=== PATIENT | male | born 1970 | race Caucasian/White ===

== ENCOUNTER 2020-06-08 15:36 | Emergency (ER) | payer OTHER ==
[~2020-06-08] VITALS: Ht 175.3 cm; Wt 163.3 kg
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
--- NOTE | 2020-06-08 19:25 | Diagnostic Imaging Report ---
EXAMINATION: CHEST SINGLE (PORTABLE) INDICATION: ^Y ^dyspnea ^[id number] ^[id number] COMPARISON: None FINDINGS: TUBES and LINES: None. LUNGS: Normal lung volumes. Bilateral perihilar interstitial thickening. No focal consolidation. PLEURA: No pleural effusion or pneumothorax. HEART AND MEDIASTINUM: The cardiomediastinal silhouette is unremarkable. BONES AND SOFT TISSUES: No acute osseous lesion. Soft tissues are unremarkable. UPPER ABDOMEN: No free air under the diaphragm. IMPRESSION: Bilateral perihilar interstitial thickening, may represent mild interstitial edema or atypical/viral infection in appropriate clinical setting. Signed by: Dr. Joe Aguilera M.D. on 06/08/2020 7:22 PM
[2020-06-08 21:14] LABS: BASOPHILS % 0.4 % (0.0-1.0); EOSINOPHILS # (AUTO) 0.2 (0.0-0.4); EOSINOPHILS % 1.5 % (0.0-6.0); HEMATOCRIT 42.2 % (38.2-49.6); HEMOGLOBIN 14.7 g/dL (14.0-18.0); LYMPHOCYTES # (AUTO) 2.9 (1.0-3.2); LYMPHOCYTES % 28.1 % (18.0-39.1); MEAN CORPUSCULAR HEMOGLOBIN 30.4 pg (28-32); MEAN CORPUSCULAR HGB CONC 34.8 g/dL (31-35); MEAN CORPUSCULAR VOLUME 87.4 fL (81-99); MONOCYTES # (AUTO) 0.6 (0.2-0.8); MONOCYTES % 6.2 % (4.4-11.3); NEUTROPHILS # (AUTO) 6.6 (2.1-6.9); NEUTROPHILS % 63.4 % (38.7-80.0); PLATELET COUNT 370 x10e3/uL (140-360); RED BLOOD COUNT 4.83 x10e6/uL (4.3-5.7); RED CELL DISTRIBUTION WIDTH 12.2 % (11.7-14.4)
[2020-06-08 21:28] LABS: ALANINE AMINOTRANSFERASE 43 IU/L (0-55); ALBUMIN 3.9 g/dL (3.5-5.0); ALKALINE PHOSPHATASE 64 IU/L (40-150); ANION GAP 14.2 mmol/L (8-16); BLOOD UREA NITROGEN 17 mg/dL (7-26); BUN/CREATININE RATIO 18 (6-25); CALCIUM 9.6 mg/dL (8.4-10.2); CARBON DIOXIDE 28 mmol/L (22-29); CHLORIDE 102 mmol/L (98-107); CREATINE KINASE 55 IU/L (30-200); CREATININE, SERUM 0.94 mg/dL (0.72-1.25); EST GLOMERULAR FILTRATION RATE > 60 ML/MIN (60-); GLUCOSE 173 mg/dL (74-118); POTASSIUM 4.2 mmol/L (3.5-5.1); SODIUM 140 mmol/L (136-145)
--- NOTE | 2020-06-08 21:53 | Diagnostic Imaging Report ---
EXAM: CT Chest WITHOUT contrast INDICATION: sob COMPARISON: None TECHNIQUE: Chest was scanned utilizing a multidetector helical scanner from the lung apex through the level of the adrenal glands without administration of IV contrast. Absence of intravenous contrast decreases sensitivity for detection of lymphadenopathy and vascular pathology. Coronal and sagittal reformations were obtained. Routine protocol was performed. IV CONTRAST: None COMPLICATIONS: None FINDINGS: LINES/ TUBES: None. LUNGS AND AIRWAYS: Airways are normal. Normal variant azygos lobe. Mild scarring/atelectasis at the left lung base. No consolidation. No septal thickening. PLEURA: The pleural spaces are clear. HEART AND MEDIASTINUM: The thyroid gland is normal. No mediastinal, hilar or axillary lymphadenopathy. The heart is normal in size. There is no pericardial effusion. There are significant atherosclerotic calcifications in the aorta and coronary arteries. Prominent epicardial fat. UPPER ABDOMEN: Unremarkable. BONES: The visualized bony thorax is within normal limits. SOFT TISSUES: Gynecomastia. IMPRESSION: 1. No pneumonia or edema. 2. Severe coronary artery calcifications. Signed by: Luis E Hamm MD on 06/08/2020 9:50 PM
--- OUTSIDE RECORDS SUMMARY | 2020-06-14 18:09 | XMS REPORT | Clinical Summary ---
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 Last Filed Vital Signs Not on file Plan of Treatment Health Maintenance Due Date Last Done Comments IMM Influenza Seasonal 05/10/2020May to October (>/= 19 yrs) Results Not on fileafter 06/08/2019 Insurance Type Payer Benefit Subscriber ID Effective Phone Address Plan / Dates Group [facility] xxxxxxxxx 2016-P [phone] [address] [facility] [id number] [place] [address] PENDING LIEN PENDING xxxxxxxxx 2019- [phone] [address] [facility] (SELF-PAY) [place] [address] [phone] [id number] [facility] (Home) [place] [address]
--- OUTSIDE RECORDS SUMMARY | 2020-06-14 18:10 | XMS REPORT | Continuity of Care Document ---
Author Author Catherine Soysuper HIPOLITO Goldsmith III Organization [employer] Address Unknown Phone Unavailable Care Team Providers Care Financial Systems Administrator Name Role Phone Team-Match Information Market Track Unavailable Un available Problems Problem Status Onset Date Classification Date Reported Comments Source Weakness 03/11/2019 [facility] STROKE SIGNS Active 08/22/2018 [facility] Hidradenitis suppurativa 01/16/2018 01/19/2018 [facility] Cutaneous abscess, unspecified 01/16/2018 01/19/2018 [facility] BOILED UNDER LEFT ARM Active 01/16/2018 [facility] Laceration without foreign body of right index finger with damage to nail, initial encounter 03/23/2017 03/26/2017 [facility] LAC ON FINGER Active 03/23/2017 [facility] Constipation, unspecified 03/01/2017 03/04/2017 [facility] ABD PAIN Active 02/28/2017 [facility] Discharge Diagnosis: Elevated blood pressure 04/04/2015 04/07/2015 [facility] Discharge Diagnosis: Diabetes 04/04/2015 04/07/2015 [facility] Discharge Diagnosis: Furuncle of right axilla 04/04/2015 04/07/2015 [facility] ABSCESS UNDER ARM Active 04/04/2015 [facility] Anxiety (finding) Active Problem 03/11/2019 [facility] Diabetes mellitus (disorder) R esolved Problem 09/2018 [facility] History of - chronic lung disease (larisa xt-dependent category) Resolved Pr oblem 03/11/2019 [facility] Seizure (finding) Resolved Problem 03/11/2019 [facility] Other chest pain 03/11/2019 [facility] Type 2 diabetes mellitus without complications 03/11/2019 [facility] Essential (primary) hypertension 03/11/2019 [facility] Atherosclerotic heart disease of [place] coronary artery without angina pectoris 03/11/2019 [facility] Morbid (severe) obesity due to excess calories 03/11/2019 [facility] Personal history of transient ischemic a ttack (TIA), and cerebral infarction without residual deficits 03/11/2019 [facility] Bipolar disorder, unspecified 03/11/2019 [facility] Chronic obstructive pulmonary disease, unspecified 03/11/2019 [facility] Unspecified convulsions 03/11/2019 [facility] Nicotine dependence, chewing tobacco, uncomplicated 03/11/2019 [facility] Other intermediate (current) drug therapy 03/11/2019 [facility] long-term (current) use of aspirin 03/11/2019 [facility] long-term (current) use of insulin 03/11/2019 [facility] Hyperlipidemia, unspecified 03/11/2019 [facility] Anxiety disorder, unspecified 03/11/2019 [facility] TRANSIENT CEREBRAL ISCHEMIC ATTACK, UNSP Active [facility] Medications Medication Details Route Status Patient Instructions Ordering Provider Order Date Source Saline Flush 0.9% Notes: (Same as: BD Posiflush) Inactive 08/23/2018 [facility] atorvastatin Notes: (Same as: Lipitor) Inactive 08/23/2018 [facility] Aspirin 325 MG Enteric Coated Tablet Notes: (Do Not Crush) Do not crush or chew. Inactive 08/22/2018 [facility] normal saline 0.9% IV 1,000 mL 1,000 mL, Rate: 75 ml/hr, Infuse over: 13.3 hr, Route: IV, Dosing Weight 155.483 kg, Total Volume: 1,000, Start date: 08/22/18 14:38:00 MANUFACTURING TECHNOLOGY PROFESSOR, Duration: 1 doses or times, Stop date: 08/23/18 3:55:00 MANUFACTURING TECHNOLOGY PROFESSOR, 2.83, m2 Inactive 08/22/2018 [facility] Saline Flush 0.9% Notes: (Same as: BD Posiflush) Inactive 08/22/2018 [facility] Acetaminophen 300 MG / butalbital 50 MG / Caffeine 40 MG Oral Capsule [Fioricet] Notes: (cuvuudtduyqec-jtdlzwzvwe-rxkagzx e 325-50-40mg) Do not exceed 4 gm/day of acetaminophen. (Same as: Esgic, Fioricet) Inactive 08/22/2018 [facility] Benadryl 25 mg, 1 tab, Route: PO, Drug form: TAB, TID, Dosing Weight 155.483, kg, PRN Itching, Start date: 08/22/18 14:35:00 MANUFACTURING TECHNOLOGY PROFESSOR, Duration: 30 day, Stop date: 09/21/18 14:34:00 MANUFACTURING TECHNOLOGY PROFESSOR Inactive 08/22/2018 [facility] Acetaminophen 325 MG / Hydrocodone Mahsa trate 5 MG Oral Tablet [[place] 5/325] Notes: (Same as: [place] 325/5) Do not ex ceed 4gm/day of acetaminophen. Inactive 08/22/2018 [facility] Tums Notes: (Same As: Tums) Ca lcium Carbonate 500 mg = 200 mg elemental calcium Dose = mg calcium carbonate ( mg elemental calcium) Inactive 08/22/2018 [facility] Ativan Notes: (Same as: Ativan) Inactive 08/22/2018 [facility] Melatonin 3 MG Extended Release Tablet Notes: (Same as: Melatonin) Inactive 08/22/2018 [facility] Tylenol Notes: Do not exceed 4 gm/day. (Same as: Tylenol) Inactive 08/22/2018 [facility] Docusate Sodium 50 MG / sennosides, GROUP HOME 8.6 MG Oral Tablet Notes: (Same as Senokot-S) Equiv. to Lea-Colace. Inactive 08/22/2018 [facility] Zofran Notes: (Same as: Zofran ) MEDICATION WASTE Product Size: 4 mg Product Wasted: ___ mg Inactive 08/22/2018 [facility] Hydralazine Notes: (Same as: A presoline) May interfere w/enteral feedings Take With Food. Inactive 08/22/2018 [facility] Labetalol Notes: (Same as: Maria E goodwin Trandate) Push over 2 minutes Give bolus over 2-3 minutes. Inactive 08/22/2018 [facility] Meclizine Notes: (Same as: Ant ivert) Inactive 08/22/2018 [facility] Aspirin 325 MG Oral Tablet Not es: Take with food. Inactive 08/22/2018 [facility] Enoxaparin Notes: (Same as: Lo venox) Inactive 08/22/2018 [facility] Lipitor Notes: (Same as: Lipit or) Inactive 08/22/2018 [facility] Aspirin 81 MG Chewable Tablet Notes: Take with food. Inactive 08/22/2018 [facility] Ativan Notes: (Same as: Ativan) Inactive 08/22/2018 [facility] Saline Flush 0.9% Notes: (Same as: BD Posiflush) Inactive 08/22/2018 [facility] Motrin 600 mg oral tablet 600 mg = 1 tab, PO, Q8H, PRN Pain, take with food, # 30 tab, 0 Refill(s) Active 01/16/2018 [facility] Clindamycin 300 MG Oral Capsule [Cleocin] 300 mg = 1 cap, PO, Q6H, X 14 day, # 56 cap, 0 Refill(s) Active 01/16/2018 [facility] Acetaminophen 325 MG / Hydrocodone Mahsa trate 5 MG Oral Tablet [[place] 5/325] 1 tab, Route: PO, Drug Form: TAB, Dosing Weight 150.909, kg, ONCE, STAT, Start date: 03/23/17 19:08:00 CDT, Stop date: 03/23/17 19:08:00 CDT Inactive 03/24/2017 [facility] clindamycin 300 mg oral capsule 300 mg = 1 cap, PO, Q8H, X 10 day, # 30 cap, 0 Refill(s) Active 03/24/2017 [facility] lidocaine 1% injectable solution Notes: (Same as: Xylocaine) Inactive 03/23/2017 [facility] lidocaine 1% injectable solution Notes: Preservative free. (Same as: Xylocaine MPF) Inactive 03/23/2017 [facility] Ibuprofen 800 mg, Route: PO, D rug form: TAB, ONCE, Dosing Weight 150.909, kg, Priority: STAT, Start date: 03/23/17 16:26:00 CDT, Stop date: 03/23/17 16:26:00 CDT Inactive 03/23/2017 [facility] Lactulose 667 MG/ML Oral Solution 10 gm = 15 mL, PO, BID, PRN constipation, X 16 day, # 240 mL, 0 Refill(s) Active 03/01/2017 [facility] Ondansetron Notes: (Same as: Rafael bermudez) MEDICATION WASTE Product Size: 4 mg Product Wasted: ___ mg No Longer Active 03/01/2017 [facility] Morphine Notes: (Same as:MORPh ine Sulfate) No Longer Active 03/01/2017 [facility] Lipitor PO, Daily, 0 Refill(s) Active 03/01/2017 [facility] NS (Bolus) IV 1,000 mL, 1,000 ml/hr, Infuse Over: 1 hr, Route: IV, 1,000, Drug form: INJ, ONCE, Priority: STAT, Dosing Weight 163.352 kg, Start date: 02/28/17 23:44:00 CDT, Duration: 1 doses or times, Stop date: 0 02/28/17 23:44:00 CDT No Longer Active 03/01/2017 [facility] Insulin Glargine 100 UNT/ML Injectable S olution [Lantus] SUB-Q, 0 Refill(s) Active 03/01/2017 [facility] Cephalexin 500 MG Oral Capsule [Keflex] 500 mg = 1 cap, PO, QID, X 10 day, # 40 cap, 0 Refill(s) Active 04/05/2015 [facility] Sulfamethoxazole 800 MG / Trimethoprim 1 60 MG Oral Tablet [Bactrim] 1 tab, PO, BID, # 20 tab, 0 Refill(s) Active 04/05/2015 [facility] Acetaminophen 325 MG / Hydrocodone Mahsa trate 5 MG Oral Tablet [[place] 5/325] 1 tab, PO, Q6H, 0 Refill(s) Active 04/05/2015 [facility] Soma PO, QID, 0 Refill(s) Active 04/05/2015 [facility] Metformin PO, 0 Refill(s) Active 04/05/2015 [facility] Xanax PO, TID, 0 Refill(s) Active 04/05/2015 [facility] Allergies, Adverse Reactions, Alerts Substance Category Reaction Severity Reaction type Status Date Reported Comments Source penicillins Assertion swelling Drug allergy Active [facility] Immunizations No Data Provided for This Section Results Order Name Results Value Reference Range Date Interpretation Comments Source LIPIDS VLDL 49 08/22/2018 [facility] LIPIDS Chol 372 <=199 mg/dL 08/22/2018 [facility] LIPIDS Trig 246 <=149 mg/dL 08/22/2018 [facility] LIPIDS CHD Risk 10.33 4.00 - 7.30 08/22/2018 [facility] LIPIDS HDL 36 >=61 mg/dL 08/22/2018 [facility] LIPIDS LDL (Calculated) 287 <=99 mg/dL 08/22/2018 [facility] SPECIAL CHEMISTRY Hgb A1C 8.9 <=5.6 % 08/22/2018 [facility] CARDIAC ENZYMES Total CK 28 12 - 191 08/22/2018 [facility] CARDIAC ENZYMES Troponin-I <0.02 0.00 - 0.40 08/22/2018 [facility] ELECTROLYTES AGAP 11.3 10.0 - 20.0 08/22/2018 [facility] ELECTROLYTES eGFR 105 08/22/2018 Result Comment: The eGFR is calculated using the CKD-EPI formula. In most young, healthy individuals the eGFR will be >90 mL/min/1.73m2. The eGFR declines with age. An eGFR of 60-89 may be normal in some populations, particularly the elderly, for whom the CKD-EPI formula has not been extensively validated. Use of the eGFR is not recommended in the following populations:

Individuals with unstable creatinine concentrations, including patients and those with serious co-morbid conditions.

Patients with extremes in muscle mass or diet.

The data above are obtained from the National Kidney Disease Education Program (NKDEP) which additionally recommends that when the eGFR is used in patients with extremes of body mass index for purposes of drug dosing, the eGFR should be multiplied by the estimated BMI. [facility] ELECTROLYTES Sodium Lvl 134 135 - 145 08/22/2018 [facility] ELECTROLYTES Chloride Lvl 99 95 - 109 08/22/2018 [facility] ELECTROLYTES Potassium Lvl 4.3 3.5 - 5.1 08/22/2018 [facility] ELECTROLYTES Calcium Lvl 9.5 8.5 - 10.5 08/22/2018 [facility] ELECTROLYTES CO2 28 24 - 32 08/22/2018 [facility] ELECTROLYTES Creatinine Lvl 0.8 6 0.50 - 1.40 08/22/2018 [facility] ELECTROLYTES BUN 15 7 - 22 08/22/2018 [facility] ELECTROLYTES Glucose Lvl 316 70 - 99 08/22/2018 [facility] HEMATOLOGY Monocytes 6.5 2.0 - 12.0 08/22/2018 [facility] HEMATOLOGY Eosinophils 1.5 0.0 - 4.0 08/22/2018 [facility] HEMATOLOGY Segs 65.0 45.0 - 75.0 08/22/2018 [facility] HEMATOLOGY Lymphocytes 26.4 20.0 - 40.0 08/22/2018 [facility] HEMATOLOGY Basophils 0.6 0.0 - 1.0 08/22/2018 [facility] HEMATOLOGY Eosinophils # 0.1 0.0 - 0.5 08/22/2018 [facility] HEMATOLOGY Basophils # 0.1 0.0 - 0.2 08/22/2018 [facility] HEMATOLOGY Lymphocytes # 2.3 1.0 - 5.5 08/22/2018 [facility] HEMATOLOGY Monocytes # 0.6 0.0 - 0.8 08/22/2018 [facility] HEMATOLOGY Neutrophils # 5.5 1.5 - 8.1 08/22/2018 [facility] HEMATOLOGY MCV 89.4 80.0 - 94.0 08/22/2018 [facility] MCH 31.1 27.0 - 31.0 08/22/2018 [facility] HEMATOLOGY Hgb 15.4 14.0 - 18.0 08/22/2018 [facility] HEMATOLOGY Hct 44.3 42.0 - 54.0 08/22/2018 [facility] MPV 7.4 7.4 - 10.4 08/22/2018 [facility] Platelet 389 133 - 450 08/22/2018 [facility] MCHC 34.7 32.0 - 36.0 08/22/2018 [facility] HEMATOLOGY RDW 11.8 11.5 - 14.5 08/22/2018 [facility] HEMATOLOGY WBC 8.6 3.7 - 10.4 08/22/2018 [facility] RBC 4.95 4.70 - 6.10 08/22/2018 [facility] HEMATOLOGY INR 0.94 0.85 - 1.17 08/22/2018 [facility] PT 12.4 12.0 - 14.7 08/22/2018 [facility] PTT 33.6 22.9 - 35.8 08/22/2018 [facility] CHEM PANEL Globulin 3.6 2.7 - 4.2 03/01/2017 [facility] CHEM PANEL A/G Ratio 1.0 0.7 - 1.6 03/01/2017 [facility] CHEM PANEL AGAP 13.0 10.0 - 20.0 03/01/2017 [facility] CHEM PANEL B/C Ratio 11 6 - 25 03/01/2017 [facility] CHEM PANEL Calcium Lvl 8.9 8.5 - 10.5 03/01/2017 [facility] CHEM PANEL Chloride Lvl 102 95 - 109 03/01/2017 [facility] CHEM PANEL Sodium Lvl 139 135 - 145 03/01/2017 [facility] CHEM PANEL CO2 28 24 - 32 03/01/2017 [facility] CHEM PANEL eGFR 94 03/01/2017 Result Comment: The eGFR is calculated using the CKD-EPI formula. In most young, healthy individuals the eGFR will be >90 mL/min/1.73m2. The eGFR declines with age. An eGFR of 60-89 may be normal in some populations, particularly the elderly, for whom the CKD-EPI formula has not been extensively validated. Use of the eGFR is not recommended in the following populations:

Individuals with unstable creatinine concentrations, including patients and those with serious co-morbid conditions.

Patients with extremes in muscle mass or diet.

The data above are obtained from the National Kidney Disease Education Program (NKDEP) which additionally recommends that when the eGFR is used in patients with extremes of body mass index for purposes of drug dosing, the eGFR should be multiplied by the estimated BMI. [facility] CHEM PANEL Creatinine Lvl 0.97 0.50 - 1.40 03/01/2017 [facility] CHEM PANEL BUN 11 7 - 22 03/01/2017 [facility] CHEM PANEL Albumin Lvl 3.6 3.5 - 5.0 03/01/2017 [facility] CHEM PANEL Glucose Lvl 330 70 - 99 03/01/2017 [facility] CHEM PANEL Alk Phos 56 39 - 136 03/01/2017 [facility] CHEM PANEL ALT 49 0 - 65 03/01/2017 [facility] CHEM PANEL Potassium Lvl 4.0 3.5 - 5.1 03/01/2017 [facility] CHEM PANEL Total Protein 7.2 6.4 - 8.4 03/01/2017 [facility] CHEM PANEL AST 22 0 - 37 03/01/2017 [facility] CHEM PANEL Bili Total 0.4 0.2 - 1.3 03/01/2017 [facility] CHEM PANEL Lactic Acid Lvl 2.0 0.5 - 2.2 03/01/2017 [facility] CHEM PANEL Lipase Lvl 184 73 - 393 03/01/2017 [facility] HEMATOLOGY MPV 7.7 7.4 - 10.4 03/01/2017 [facility] MCHC 34.6 32.0 - 36.0 03/01/2017 [facility] HEMATOLOGY RDW 12.3 11.5 - 14.5 03/01/2017 [facility] HEMATOLOGY Platelet 320 133 - 450 03/01/2017 [facility] MCH 30.9 27.0 - 31.0 03/01/2017 [facility] HEMATOLOGY Hgb 13.7 14.0 - 18.0 03/01/2017 [facility] Hct 39.7 42.0 - 54.0 03/01/2017 [facility] MCV 89.3 80.0 - 94.0 03/01/2017 [facility] RBC 4.44 4.70 - 6.10 03/01/2017 [facility] WBC 7.5 3.7 - 10.4 03/01/2017 [facility] HEMATOLOGY Eosinophils # 0.2 0.0 - 0.5 03/01/2017 [facility] HEMATOLOGY Lymphocytes 34.5 20.0 - 40.0 03/01/2017 [facility] HEMATOLOGY Monocytes 7.1 2.0 - 12.0 03/01/2017 [facility] HEMATOLOGY Segs 55.7 45.0 - 75.0 03/01/2017 [facility] HEMATOLOGY Monocytes # 0.5 0.0 - 0.8 03/01/2017 [facility] HEMATOLOGY Segs-Bands # 4.2 1.5 - 8.1 03/01/2017 [facility] HEMATOLOGY Lymphocytes # 2.6 1.0 - 5.5 03/01/2017 [facility] HEMATOLOGY Eosinophils 2.1 0.0 - 4.0 03/01/2017 [facility] HEMATOLOGY Basophils 0.6 0.0 - 1.0 03/01/2017 [facility] URINE AND STOOL Micro? Performed (03/01/17 12:06 AM) 03/01/2017 [facility] URINE AND STOOL UA Sq Epi Rare /LPF Few /LPF 03/01/2017 [facility] URINE AND STOOL UA Bacteria None Seen (03/01/17 12:06 AM) None Seen 03/01/2017 [facility] URINE AND STOOL UA RBC 0-2 /HPF 0 - 2 03/01/2017 [facility] URINE AND STOOL UA WBC 0-2 /HPF None Seen /HPF 03/01/2017 [facility] URINE AND STOOL UA Nitrite Negative (03/01/17 12:06 AM) Negative 03/01/2017 [facility] URINE AND STOOL UA Urobilinogen 0.2 0.1 - 1.0 03/01/2017 [facility] URINE AND STOOL UA Leuk Est Negative (03/01/17 12:06 AM) Negative 03/01/2017 [facility] URINE AND STOOL UA Bili Negative *NA* (03/01/17 12:06 AM) Negative 03/01/2017 [facility] URINE AND STOOL UA Blood Negative (03/01/17 12:06 AM) Negative 03/01/2017 [facility] URINE AND STOOL UA Ketones Negative *NA* (03/01/17 12:06 AM) Negative 03/01/2017 [facility] URINE AND STOOL UA Glucose >=1000 mg/dL Negative mg/dL 03/01/2017 [facility] URINE AND STOOL UA Protein 30 mg/dL Negative mg/dL 03/01/2017 [facility] URINE AND STOOL UA Spec Grav 1.025 <=1.030 03/01/2017 [facility] URINE AND STOOL UA Turbidity Clear (03/01/17 12:06 AM) Clear 03/01/2017 [facility] URINE AND STOOL UA pH 6.0 5.0 - 8.0 03/01/2017 [facility] URINE AND STOOL UA Color Yellow *NA* (03/01/17 12:06 AM) Yellow 03/01/2017 [facility] Pathology Reports No Data Provided for This Section Diagnostic Reports Report Value Date Source Brain Stroke wo contrast CT [facility]: Brain Stroke wo contrast CT 08/22/2018 10:54 MANUFACTURING TECHNOLOGY PROFESSOR Ordering Physician: Migdalia Velasquez MD Patient Name: HIPOLITO JIANG MR: [id number] : 1970; Age: 47 years y/o Male Clinical Indication: - left sided weakness Comparison: None TECHNIQUE: Multiple contiguous transaxial noncontrast CT images were obtained through the head. Coronal and sagittal reformatted images were prepared. DOSE: CT imaging performed at this location utilizes radiation dose optimization techniques which include one or more of the followin) Automated exposure control; 2) Adjustment of the mA and/or kV according to patient size; 3) Use of iterative reconstruction techniques. Dose DLP: 1163 mGy-cm FINDINGS: BRAIN PARENCHYMA: The brain volume is appropriate for age. No evidence of acute intracranial hemorrhage, mass lesion, mass effect, midline shift, or extra-axial fluid collection. VENTRICLES: The lateral ventricles, third ventricle, fourth ventricle, and basilar cisterns are appropriate for degree of atrophy present. PARANASAL SINUSES: The visualized portions of the paranasal sinuses are clear. MASTOIDS: Clear. ORBITS: The visualized portions of the orbits are normal. SOFT TISSUES: No significant abnormality. SKULL: No acute fracture or suspicious osseous lesion. IMPRESSION: 1. No acute intracranial abnormality. Findings discussed with Dr. Velasquez 11:33 AM 08/22/2018 by telephone. SL: [id number] 08/22/2018 [facility] Brain/Neck CTA Clinical Indica tion: - left sided weakness. Comparison: CT brain study dated 08/22/2018. TECHNIQUE: Sequential trans-axial images of the head and neck were obtained with a multi-detector helical CT after iodinated contrast administration. Coronal and sagittal reconstructions and were obtained, along with 3D post-processing imaging for exam interpretation with MIP images. CONTRAST: 100 cc of IV Omnipaque contrast material was used for the exam. CT imaging performed at this location utilizes radiation dose optimization techniques which include one or more of the following: -Automated exposure control -Adjustment of the mA and/or kV accordin g to patient size -Use of iterative reconstruction [employer] ue CT Radiation Dose DLP 1530 mGy-cm FINDINGS: CTA NECK: VASCULAR EVALUATION: The aortic arch demonstrates normal three-vessel configuration. The origins of the great vessels and visualized upper thoracic aortic arch are unremarkable. Patchy eccentric atherosclerotic calcifications along the bilateral carotid bulbs minimally extending into the proximal internal carotid artery causing less than 30% stenosis of the proximal internal carotid arteries bilaterally as per the NASCET criteria. RIGHT The common carotid artery is widely patent. Mild tortuosity with medial retropharyngeal course of the proximal right cervical internal carotid artery. Mild patchy atherosclerotic calcifications along the distal right cervical internal carotid artery without significant stenosis. The right external carotid artery is unremarkable. LEFT The common carotid artery is widely patent. The internal carotid artery origin is widely patent. The cervical internal carotid artery is widely patent. The left external carotid artery is unremarkable. The right vertebral artery is hypoplastic throughout its course-anatomic variation. No dominant left vertebral artery. Bilateral cervical segments of the vertebral arteries are widely patent. The source images show no evidence of dissections. If there is further concern, recommend conventional angiography for complete assessment. Any reported ICA stenosis directly references the distal internal carotid diameter as the denominator for stenosis measurement. NON-VASCULAR STRUCTURES: Azygous right upper lobe. Multilevel degenerative disc and endplate changes changes in the cervical spine. Visualized lung apices are unremarkable. Mild circumferential thickening of the visualized esophageal wall, more in its posterior aspect. CTA HEAD: ANTERIOR CIRCULATION: Eccentric atherosclerotic plaque along the bilateral petrous segment of the internal carotid arteries with mild focal stenosis. Moderate patchy atherosclerotic calcific plaques along the cavernous and supraclinoid internal carotid arteries causing moderate to severe stenosis of the right and moderate left focal stenosis. The distal intracranial internal carotid arteries are patent. Hypoplastic right A1 segment-anatomic variation. Patent left A1 and bilateral A2 segments of the anterior cerebral arteries. The middle cerebral arteries and branches are unremarkable. The anterior communicating artery is unremarkable. POSTERIOR CIRCULATION: Moderate eccentric atherosclerotic calcifications along the left intradural V3 and proximal V4 segment with moderate focal stenosis. The distal left V4 segment is patent. Nonvisualization of the right V4 segment secondary to marked hypoplasia/chronic stenosis with patchy eccentric atherosclerotic calcifications along the proximal right V4 segment moderate to severe focal stenosis. Patent right V3 segment. Remainder of the vertebral basilar system is unremarkable. superior cerebellar and posterior cerebral arteries are unremarkable. The distal right vertebral artery continues as posterior inferior cerebellar artery. No CT evidence of arterial venous malformation. NON-CONTRAST BRAIN IMAGES: The noncontrast images of the head show no mass- effect or midline shift. There are no intra or extra-axial fluid collections, intraventricular or intraparenchymal hemorrhages. The ventricles and cisterns are normal. CONTRAST ENHANCED BRAIN IMAGES: The contrast-enhanced images of the head show no abnormally enhancing lesions. If there is further concern, recommend conventional angiography for complete assessment. IMPRESSION: 1. Patchy eccentric atherosclerotic calc ifications along the bilateral carotid bulbs mildly extending into the proximal internal carotid artery causing less than 30% stenosis of the proximal internal carotid arteries bilaterally as per the NASCET criteria. 2. Atherosclerotic disease with patchy c alcifications along the bilateral petrous internal carotid arteries with mild focal stenosis. Moderate patchy atherosclerotic calcific plaques along the cavernous and supraclinoid internal carotid arteries causing focal moderate to severe stenosis of the right and moderate left focal stenosis. 3. Moderate eccentric atherosclerotic ca lcifications along the left intradural V3 and proximal V4 segment with moderate focal stenosis. The distal left V4 segment is patent. Nonvisualization of the right V4 segment with patchy eccentric atherosclerotic calcifications along the proximal right V4 segment causing moderate to severe focal stenosis likely secondary to marked hypoplasia/chronic stenosis. SL: [id number] 08/22/2018 [facility] Chest 1view DX Clinical Indica tion: - left sided weakness; Comparison: None FINDINGS: AP chest radiographs shows normal lung volumes without interstitial or airspace opacities, pleural effusions or pneumothorax. The heart size and pulmonary vasculature are normal. The trachea is midline. There are no clinically significant osseous abnormalities noted. IMPRESSION: No chest radiographic evidence of acute cardiopulmonary disease. SL: [id number] 08/22/2018 [facility] Finger 3 views DX Clinical Ind ication: Right index finger laceration; Comparison: None FINDINGS: The 4 views of the right index finger show normal alignment without fractures or dislocations. The interphalangeal joints are unremarkable. The metacarpophalangeal joint is unremarkable. There is no soft tissue swelling or radiopaque foreign bodies. If there is further concern, recommend follow-up radiographs or bone scan for complete assessment. IMPRESSION: No fractures or dislocation of the right index finger. 03/23/2017 [facility] ED Abdomen/Pelvis IV contrast only CT Clinical Indication: Abdominal pain, acute - RLQ TTP Comparison: None TECHNIQUE: Sequential trans-axial images were obtained with a multi-detector helical CT after administration of iodinated contrast. Coronal and sagittal reconstructions were obtained. 100 mL of omnipaque contrast material was used for the exam. omnipaque oral contrast material was used for the exam. CT Radiation Dose DLP 1487 mGy-cm FINDINGS: CT ABDOMEN WITH CONTRAST: VISUALIZED LUNG BASES: Unremarkable. The heart is normal in size. ABDOMINAL SOLID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
--- OUTSIDE RECORDS SUMMARY | 2020-06-14 18:10 | XMS REPORT | Continuity of Care Document ---
Author Author [facility] t Organization [facility] Address [address] [place] [address] Phone Unavailable Care Team Providers Care Mathematical Scientist Name Role Phone Sandoval MARQUEZ Attphys Unavailable Denys Rogers Attphys Mauro Coronel III Attphys Avery Bustillo Attphys Owen Meehan Attphys Denys Rogers Admphys Payers Payer Name Policy Type Policy Number Effective Date Expiration Date S ource Problems Condition Name Condition Details Condition Category Status Onset Date Resolution Date Last Treatment Date Treating Clinician Comments Source STROKE SIGNS STRO KE SIGNS Active 08/22/2018 [facility] Diagnosis Active 2018-08-22 07:00:00 2018-08-23 14:20:00 Catherine Rao BOILED UNDER LEFT ARM BOIL ED UNDER LEFT ARM Active 01/16/2018 [facility] Diagnosis Active 2018-01-16 00:00:00 2018-01-16 15:46: 00 Catherine Rao LAC ON FINGER LAC ON FINGER Active 03/23/2017 [facility] Diagnosis Active 2017-03-23 00:00:00 2017-03-23 17:27:00 Catherine Rao ABD PAIN ABD PAIN Active 02/28/2017 [facility] Diagnosis Active 2017-02-28 00:00:00 2017-03-01 02:45:00 Catherine Rao ABSCESS UNDER ARM ABSC ESS UNDER ARM Active 04/04/2015 [facility] Diagnosis Active 2015-04-04 01:00:00 2015-04-06 15:43:00 [facility] Other chest pain Othe r chest pain 03/11/2019 [facility] 2019-03-11 12:33:20 Nm papo Jalen Type 2 diabetes mellitus without complications Type 2 diabetes mellitus without complications 03/11/2019 [facility] 2019-03-11 12:33:20 [facility] Essential (primary) hypertension Essential (primary) hypertension 03/11/2019 [facility] 2019-03-11 12:33:20 [facility] 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 03/11/2019 [facility] 2019-03-11 12:33:20 [facility] Morbid (severe) obesity due to excess calories Morbid (severe) obesity due to excess calories 03/11/2019 [facility] 2019-03-11 12:33:20 [facility] Personal history of transient ischemic a ttack (TIA), and cerebral infarction without residual deficits Personal history of transient ischemic attack (TIA), and cerebral infarction without residual deficits 03/11/2019 [facility] 2019-03-11 12:33:20 [facility] Bipolar disorder, unspecified Bipolar disorder, unspecified 03/11/2019 [facility] 2019-03-11 1 2:33:20 [facility] Chronic obstructive pulmonary disease, unspecified Chronic obstructive pulmonary disease, unspecified 03/11/2019 [facility] 2019-03-11 12:33:20 [facility] Unspecified convulsions Unsp ecified convulsions 03/11/2019 [facility] 2019-03-11 12:33:20 [facility] Nicotine dependence, chewing tobacco, uncomplicated Nicotine dependence, chewing tobacco, uncomplicated 03/11/2019 [facility] 2019-03-11 12:33:20 [facility] Other half-way (current) drug therapy 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 03/11/2019 [facility] 2019-03-11 12:33:20 [facility] turnaround engineer (current) use of aspirin half-way (current) use of aspirin 03/11/2019 [facility] 2 12:33:20 [facility] turnaround engineer (current) use of insulin half-way (current) use of insulin 03/11/2019 [facility] 2 12:33:20 [facility] Jalen Hyperlipidemia, unspecified Hy perlipidemia, unspecified 03/11/2019 [facility] 2019-03-11 12:33:2 0 Catherine Rao Anxiety disorder, unspecified Anxiety disorder, unspecified 03/11/2019 [facility] Problem 2019-03-11 1 2:33:20 Catherine Rao Diabetes mellitus (disorder) D iabetes mellitus (disorder) Resolved Problem 03/11/2019 [facility] Problem Resolved 2019-03-11 12:33:20 Catherine Rao History of - chronic lung disease (context-dependent c ategory) History of - chronic lung disease (context-dependent category) Resolved Problem 03/11/2019 [facility] Problem Resolved 2019-03-11 12:33: 20 Catherine Rao Seizure (finding) Seiz ure (finding) Resolved Problem 03/11/2019 [facility] Problem Resolved 2019-03-11 12:33:20 Catherine Rao Anxiety (finding) Anxi ety (finding) Active Problem 03/11/2019 [facility] Problem Active 2019-03-11 12:33:20 [facility] Jalen TRANSIENT CEREBRAL ISCHEMIC ATTACK, UNSP TRANSIENT CEREBRAL ISCHEMIC ATTACK, UNSP Active [facility] Diagnosis Active 2018-08-23 14:20:00 Catherine Rao Weakness Weak ness 08/27/2018 03/11/2019 [facility] Problem 2018-08-27 05:27:52 2019-03-11 12:33:20 2019-03-11 12:33:20 Catherine Rao Hidradenitis suppurativa Hidr adenitis suppurativa 01/16/2018 01/19/2018 [facility] Problem 2018-01-16 05:00:00 2017 01:36:46 2018-01-19 01:36:46 [facility] [place] Cutaneous abscess, unspecified Cutaneous abscess, unspecified 01/16/2018 01/19/2018 [facility] Problem 20 25-01-09 05:00:00 2018-01-19 01:36:46 2018-01-19 01:36:46 Catherine Rao Laceration without foreign body of right index finger with damage to nail, initial encounter Laceration witho ut foreign body of right index finger with damage to nail, initial encounter 03/23/2017 03/26/2017 [facility] Problem 2017-03-23 05:00:00 2017-03-26 05:10:56 2 05:10:56 [facility] Constipation, unspecified Cons tipation, unspecified 03/01/2017 03/04/2017 [facility] 2017-03-01 05:00:00 2016 00:23:00 2017-03-04 00:23:00 [facility] [place] Discharge Diagnosis: Elevated blood pressure Discharge Diagnosis: Elevated blood pressure 04/04/2015 04/07/2015 [facility] 2015-04-04 05:00:00 2015-04-07 09:57:07 2015-04-07 09:57:07 [facility] Discharge Diagnosis: Diabetes Discharge Diagnosis: Diabetes 04/04/2015 04/07/2015 [facility] 04-04 05:00:00 2015-04-07 09:57:07 2015-04-07 09:57:07 [facility] Discharge Diagnosis: Furuncle of right axilla Discharge Diagnosis: Furuncle of right axilla 04/04/2015 04/07/2015 [facility] 2015-04-04 05:00:00 2015-04-07 09:57:07 2015-04-07 09:57:07 [facility] Allergies, Adverse Reactions, Alerts Allergy Name Allergy Type Status Severity Reaction(s) Onset Date Inacti ve Date Treating Clinician Comments Source Penicillins DA Active [place] 2020-02-21 00:00:00 [facility] venom-honey bee DA Active [place] 2020-02-21 00:00:00 [facility] venom-wasp DA Active [place] 2020-02-21 00:00:00 [facility] Penicillins DA Active [place] 2018-04-24 00:00:00 [facility] venom-honey bee DA Active [place] 2018-04-24 00:00:00 [facility] venom-wasp DA Active [place] 2018-04-24 00:00:00 [facility] Penicillins DA Active [place] 2017-02-24 00:00:00 [facility] venom-honey bee DA Active [place] 2017-02-24 00:00:00 [facility] venom-wasp DA Active [place] 2017-02-24 00:00:00 [facility] penicillins penicillins Active [facility] Social History Social Habit Start Date Stop Date Quantity Comments Source Sex Assigned At [facility] Social History 2017-03-01 04:42:33 2017-03-01 04:42:33 [facility] [place] Medications Ordered Medication Name Filled Medication Name Start Date Stop Da te Current Medication? Ordering Clinician Indication Dosage Frequency Signature (SIG) Comments Components Source Saline Flush 0.9% 2018-08-23 03:00:00 No Notes: (Same as: BD Posiflush) [facility] [place] atorvastatin 2018-08-23 03:00:00 No Notes: (Same as: Lipitor) [facility] Aspirin 325 MG Enteric Coated Tablet 2018-08-22 21:00:00 No Notes: (Do Not Crush) Do not crush or chew. [facility] normal saline 0.9% IV 1,000 mL 2018-08-22 20:38:00 No 1,000 mL, Rate: 75 ml/hr, Infuse over: 13.3 hr, Route: IV, Dosing Weight 155.483 kg, Total Volume: 1,000, Start date: 08/22/18 14:38:00 DEBURRER MACHINE, Duration: 1 doses or times, Stop date: 08/23/18 3:55:00 DEBURRER MACHINE, 2.83, m2 [facility] Saline Flush 0.9% 2018-08-22 20:35:00 No Notes: (Same as: BD Posiflush) [facility] Acetaminophen 300 MG / butalbital 50 MG / Caffeine 40 MG Oral Capsule [Fioricet] 2018-08-22 20:35:00 No Notes: (ytinlsxvuarjk-fonfbzdtbw-rraruohq 325-50-40mg) Do not exceed 4 gm/day of acetaminophen. (Same as: Esgic, Fioricet) [facility] Benadryl 2018-08-22 20:35:00 No 25 mg, 1 tab, Route: PO, Drug form: TAB, TID, Dosing Weight 155.483, kg, PRN Itching, Start date: 08/22/18 14:35:00 DEBURRER MACHINE, Duration: 30 day, Stop date: 09/21/18 14:34:00 DEBURRER MACHINE [facility] Acetaminophen 325 MG / Hydrocodone Bitartrate 5 MG Oral Tabl et [[place] 5/325] 2018-08-22 20:35:00 No Notes: (Same as: [place] 325/5) Do not exceed 4gm/day of acetaminophen. Catherine Bass nn Tums 2018-08-22 20:35:00 No Notes: (Same As: Tums) Calcium Carbonate 500 mg = 200 mg elemental calcium Dose = mg calcium carbonate ( mg elemental calcium) Catherine Dumontann Ativan 2018-08-22 20:35:00 No Notes: (Same as: Ativan) Catherine Dumontann Melatonin 3 MG Extended Release Tablet 2018-08-22 20:35:00 No Notes: (Same as: Melatonin) Catherine Dumontann Tylenol 2018-08-22 20:35:00 No Notes: Do not exceed 4 gm/day. (Same as: Tylenol) Catherine Dumontann Docusate Sodium 50 MG / sennosides, [facility] 8.6 MG Oral Tablet 2018-08-22 20:35:00 No Notes: (Same as Senokot-S) Equ iv. to Lea-Colace. Catherine Dumontann Zofran 2018-08-22 20:35:00 No Notes: (Same as: Zofran) MEDICATION WASTE Product Size: 4 mg Product Wasted: ___ mg Catherine Rao Hydralazine 2018-08-22 20:35:00 No Notes: (Same as: Apresoline) May interfere w/enteral feedings Take With Food. Catherine Dumontann Labetalol 2018-08-22 20:35:00 No Notes: (Same as: Normodyne, Trandate) Push over 2 minutes Give bolus over 2-3 minutes. Catherine Jalen Meclizine 2018-08-22 20:33:00 No Notes: (Sa me as: Antivert) Catherine Dumontann Aspirin 325 MG Oral Tablet 2018-08-22 20:33:00 No Notes: Take with food. Catherine Dumontann Enoxaparin 2018-08-22 19:00:00 No Notes: (S duy as: Lovenox) [facility] [place] Lipitor 2018-08-22 18:07:00 No Notes: (Same as: Lipitor) Catherine Dumontann Aspirin 81 MG Chewable Tablet 2018-08-22 18:07:00 No Notes: Take with food. Catherine Rao Ativan 2018-08-22 16:57:00 No Notes: (Same as: Ativan) Catherine Dumontann Saline Flush 0.9% 2018-08-22 16:54:00 No Notes: (Same as: BD Posiflush) [facility] Motrin 600 mg oral tablet 2018-01-16 20:35:00 Yes 600 mg = 1 tab, PO, Q8H, PRN Pain, take with food, # 30 tab, 0 Refill(s) Catherine Rao Clindamycin 300 MG Oral Capsule [Cleocin] 2018-01-16 20:22:00 Yes 300 mg = 1 cap, PO, Q6H, X 14 day, # 56 cap, 0 Refill(s) [facility] Acetaminophen 325 MG / Hydrocodone Bitartrate 5 MG Oral Tabl et [[place] 5/325] 2017-03-24 00:08:00 No 1 tab, Route: PO, Drug Form: TAB, Dosing Weight 150.909, kg, ONCE, STAT, Start date: 03/23/17 19:08:00 CDT, Stop date: 03/23/17 19:08:00 CDT [facility] clindamycin 300 mg oral capsule 2017-03-24 00:06:00 Yes 300 mg = 1 cap, PO, Q8H, X 10 day, # 30 cap, 0 Refill(s) [facility] lidocaine 1% injectable solution 2017-03-23 21:49:00 No Notes: (Same as: Xylocaine) [facility] lidocaine 1% injectable solution 2017-03-23 21:27:00 No Notes: Preservative free. (Same as: Xylocaine MPF) [facility] Ibuprofen 2017-03-23 21:26:00 No 800 mg, Route: PO, Drug form: TAB, ONCE, Dosing Weight 150.909, kg, Priority: STAT, Start date: 03/23/17 16:26:00 CDT, Stop date: 03/23/17 16:26:00 CDT [facility] Lactulose 667 MG/ML Oral Solution 2017-03-01 07:20:00 Yes 10 gm = 15 mL, PO, BID, PRN constipation, X 16 day, # 240 mL, 0 Refill(s) [facility] Ondansetron 2017-03-01 04:44:00 No Notes: (Same as: Zofran) MEDICATION WASTE Product Size: 4 mg Product Wasted: ___ mg [facility] Morphine 2017-03-01 04:44:00 No Not es: (Same as:MORPhine Sulfate) Catherine Rao Lipitor 2017-03-01 04:44:00 Yes PO, Daily, 0 Refill(s) Catherine Rao NS (Bolus) IV 2017-03-01 04:44:00 No 1,000 mL, 1,000 ml/hr, Infuse Over: 1 hr, Route: IV, 1,000, Drug form: INJ, ONCE, Priority: STAT, Dosing Weight 163.352 kg, Start date: 02/28/17 23:44:00 CDT, Duration: 1 doses or times, Stop date: 02/28/17 23:44:00 CDT Catherine Rao Insulin Glargine 100 UNT/ML Injectable Solution [Lantus] 2017-03-01 04:44:00 Yes SUB-Q, 0 Refill(s) Catherine Rao Cephalexin 500 MG Oral Capsule [Keflex] 2015-04-05 01:44:00 Yes 500 mg = 1 cap, PO, QID, X 10 day, # 40 cap, 0 Refill(s) Catherine Rao Sulfamethoxazole 800 MG / Trimethoprim 160 MG Oral Tablet [B actrim] 2015-04-05 01:44:00 Yes 1 tab, PO, BID, # 20 tab, 0 Refill(s) Catherine Rao Acetaminophen 325 MG / Hydrocodone Bitartrate 5 MG Oral Tabl et [[place] 5/325] 2015-04-05 01:34:00 Yes 1 tab, PO, Q6H, 0 Refill(s) Catherine Rao Soma 2015-04-05 01:34:00 Yes PO, QID, 0 Refi ll(s) Catherine Rao Metformin 2015-04-05 01:33:00 Yes PO, 0 Refi ll(s) Catherine Rao Xanax 2015-04-05 01:33:00 Yes PO, TID, 0 Ref ill(s) Catherine Rao Vital Signs Vital Name Observation Time Observation Value Comments Source Height 2018-08-22 20:17:00 180.34 cm Catherine Rao Respitory Rate 2018-08-22 20:16:00 Maria Antoniaori al Jalen Systolic (mm Hg) 2018-08-22 20:16:00 Kelechi diana aRo Diastolic (mm Hg) 2018-08-22 20:16:00 Mem o[facility] [place] Heart Rate 2018-08-22 20:16:00 [facility] [place] Temperature Oral (F) 2018-08-22 20:16:00 98.4 F [facility] [place] BMI Calculated 2018-08-22 19:43:00 Memori al [place] Weight 2018-08-22 19:43:00 [facility] [place] Height 2018-08-22 19:43:00 180.34 cm [facility] [place] Heart Rate 2018-08-22 19:20:00 [facility] [place] Systolic (mm Hg) 2018-08-22 19:20:00 Kelechi rial Jalen Diastolic (mm Hg) 2018-08-22 19:20:00 Mem [facility] [place] Respitory Rate 2018-08-22 19:20:00 [facility]ori [facility] [place] Heart Rate 2018-08-22 19:00:00 [facility] [place] Systolic (mm Hg) 2018-08-22 19:00:00 Kelechi rial [place] Diastolic (mm Hg) 2018-08-22 19:00:00 Mem o[facility] [place] Respitory Rate 2018-08-22 19:00:00 [facility]ori [facility] [place] Weight 2018-08-22 16:44:00 [facility] [place] BMI Calculated 2018-08-22 16:44:00 [facility] [place] Height 2018-08-22 16:44:00 180.34 cm [facility] [place] Temperature Oral (F) 2018-08-22 16:44:00 98.7 F [facility] [place] Heart Rate 2018-01-16 20:43:00 [facility] [place] Respitory Rate 2018-01-16 20:43:00 Memori [facility] [place] Systolic (mm Hg) 2018-01-16 20:43:00 Kelechi rial [place] Diastolic (mm Hg) 2018-01-16 20:43:00 Mem o[facility] [place] BMI Calculated 2018-01-16 19:52:00 [facility] [place] Weight 2018-01-16 19:52:00 [facility] [place] Height 2018-01-16 19:52:00 180.34 cm [facility] [place] Heart Rate 2018-01-16 19:52:00 [facility] Systolic (mm Hg) 2018-01-16 19:52:00 Kelechi rial Jalen Diastolic (mm Hg) 2018-01-16 19:52:00 Mem o[facility] [place] Respitory Rate 2018-01-16 19:52:00 Memori al [place] Temperature Oral (F) 2018-01-16 19:52:00 97.1 F [facility] [place] Height 2017-03-23 21:19:00 180.34 cm [facility] [place] BMI Calculated 2017-03-23 21:19:00 [facility]ori [facility] [place] Weight 2017-03-23 21:19:00 [facility] Temperature Oral (F) 2017-03-23 21:19:00 96.8 F [facility] [place] Respitory Rate 2017-03-23 21:19:00 Memori [facility] [place] Heart Rate 2017-03-23 21:19:00 [facility] [place] Systolic (mm Hg) 2017-03-23 21:19:00 Kelechi rial Jalen Diastolic (mm Hg) 2017-03-23 21:19:00 Mem o[facility] [place] Systolic (mm Hg) 2017-03-01 07:33:00 Kelechi rial [place]alen Diastolic (mm Hg) 2017-03-01 07:33:00 Mem o[facility] [place] Respitory Rate 2017-03-01 07:33:00 Memori al [place] Heart Rate 2017-03-01 07:33:00 [facility] [place] Temperature Oral (F) 2017-03-01 07:33:00 97.8 F [facility] BMI Calculated 2017-03-01 04:10:00 [facility] [place] Height 2017-03-01 04:10:00 177.8 cm [facility] [place] Weight 2017-03-01 04:10:00 [facility] [place] Systolic (mm Hg) 2017-03-01 04:10:00 Kelechi rial [place]alen Diastolic (mm Hg) 2017-03-01 04:10:00 [facility] [place] Temperature Oral (F) 2017-03-01 04:10:00 96.8 F [facility] [place] Respitory Rate 2017-03-01 04:10:00 Memori [facility] [place] Heart Rate 2017-03-01 04:10:00 [facility] [place] Weight 2015-04-05 01:17:00 [facility] Respitory Rate 2015-04-05 01:17:00 [facility] [place] Heart Rate 2015-04-05 01:17:00 [facility] [place] Temperature Oral (F) 2015-04-05 01:17:00 98.0 F [facility] [place] Systolic (mm Hg) 2015-04-05 01:17:00 Kelechi rial [place] Diastolic (mm Hg) 2015-04-05 01:17:00 [facility] [place] Height 2015-04-05 01:17:00 180.34 cm Catherine Dumontann BMI Calculated 2015-04-05 01:17:00 Eryn al [facility] Procedures Procedure Date / Time Performed Performing Clinician Jabari e Tonsillectomy Catherine Rao Plan of Care Planned Activity Planned Date Details Comments Source Future Scheduled Test 2020-05-10 00:00:00 IMM Influenza Seas onal May to October (>/= 19 yrs) [code = IMM Influenza Seasonal May to October (>/= 19 yrs)] [facility] Encounters Start Date/Time End Date/Time Encounter Type Admission Type [facility] Care Department Encounter ID Source 2019-02-16 23:10:07 2019-02-16 23:10:07 Emergency [facility] [id number] [facility] 2019-02-16 23:08:48 2019-02-16 23:08:48 Emergency [facility] [id number] [facility] 2019-02-16 22:38:24 2019-02-16 22:38:24 Emergency [facility] [id number] [facility] 2018-08-22 10:39:00 2018-08-22 16:52:00 Outpatient José Rogers [facility] [id number] 2018-01-16 14:40:00 2018-01-16 15:48:00 Outpatient Jama Bello [facility] [id number] 2017-03-23 16:15:00 2017-03-23 19:31:00 Outpatient Simeon Bustillo [facility] [id number] 2017-02-28 23:06:00 2017-03-01 02:40:00 Outpatient Simeon Bustillo [facility] [id number] 2015-04-04 19:51:00 2015-04-04 20:51:00 Outpatient Corrie Meehan [facility] [id number] Results Test Description Test Time Test Comments Results Result Comments Source CT CHEST WO 2020-06-08 21:30:00 [facility] 1970 Sex: M [facility] [address] [address] Patient Name: HIPOLITO JIANG III MR #: [id number] : 1970 Age/Sex: 49/M Req #: [id number] Adm Physician: Ordered by: BLAISE FREEDMAN MD Report #: [id number] Location: ER Room/Bed: Procedure: [id number] CT/CT CHEST WO Exam Date: 06/08/20 Exam Time: 2107 REPORT STATUS: Signed EXAM: CT Chest WITHOUT contrast INDICATION: sob COMPARISON: None TECHNIQUE: Chest was scanned utilizing a multidetector helical scanner from the lung apex through the level of the adrenal glands without administration of IV contrast. Absence of intravenous contrast decreases sensitivity for detection of lymphadenopathy and vascular pathology. Coronal and sagittal reformations were obtained. Routine protocol was performed. IV CONTRAST: None COMPLICATIONS: None FINDINGS: LINES/ TUBES: None. LUNGS AND AIRWAYS: Airways are normal. Normal variant azygos lobe. Mild scarring/atelectasis at the left lung base. No consolidation. No septal thickening. PLEURA: The pleural spaces are clear. HEART AND MEDIASTINUM: The thyroid gland is normal. No mediastinal, hilar or axillary lymphadenopathy. The heart is normal in size. There is no pericardial effusion. There are significant atherosclerotic calcifications in the aorta and coronary arteries. Prominent epicardial fat. UPPER ABDOMEN: Unremarkable. BONES: The visualized bony thorax is within normal limits. SOFT TISSUES: Gynecomastia. IMPRESSION: 1. No pneumonia or edema. 2. Severe coronary artery calcifications. Signed by: Filemon Hamm MD on 06/08/2020 9:50 PM Dictated By: FILEMON HAMM MD 49 Transcribed By: LIZETH on 06/08/202149 COPY TO: BLAISE FREEDMAN MD CHEST SINGLE (PORTABLE) 2020-06-08 19:20:00 [facility] 1970 Sex: M [place] [address] Patient Name: HIPOLITO JIANG III MR #: [id number] : 1970 Age/Sex: 49/M Req #: [id number] [facility] Physician: Ordered by: GIANNA MARQUEZ MD Report #: [id number] Location: ER Room/Bed: Procedure: [id number] DX/CHEST SINGLE (PORTABLE) Exam Date: 06/08/20 Exam Time: 1844 REPORT STATUS: Signed EXAMINATION: CHEST SINGLE (PORTABLE) INDICATION: Y dyspnea [id number] COMPARISON: None FINDINGS: TUBES and LINES: None. LUNGS: Normal lung volumes. Bilateral perihilar interstitial thickening. No focal consolidation. PLEURA: No pleural effusion or pneumothorax. HEART AND MEDIASTINUM: The cardiomediastinal silhouette is unremarkable. BONES AND SOFT TISSUES: No acute osseous lesion. Soft tissues are unremarkable. UPPER ABDOMEN: No free air under the diaphragm. IMPRESSION: Bilateral perihilar interstitial thickening, may represent mild interstitial edema or atypical/viral infection in appropriate clinical setting. Signed by: Dr. Vidal Aguilera M.D. on 06/08/2020 7:22 PM Dictated By: VIDAL AGUILERA MD 21 Transcribed By: LIZETH on 06/08/201921 COPY TO: GIANNA MARQUEZ MD - XR HAND 3 + V RT 2020-02-21 14:05:00 FAX: Les George [phone] [place]: B St: REG FAX: Brennan Wilcox MD Name: DEIDREHIPOLITOTU NOE III [facility] : 1970 Age/S: 49/M [address] [facility] Unit #: [id number] Loc: [place] [address] Phys: Les Cotton MD Acct: [id number] Dis Date: Status: REG ER PHONE #: [phone] Exam Date: 02/21/2020 1329 FAX #: [phone] Reason: pain s/p fall EXAMS: CPT CODE: [id number] XR HAND 3 + [place] [id number] REASON FOR EXAM: pain s/p fall EXAM ORDER DATE: 02/21/2020 12:59 PM Ordering Tim: Les Cotton MD PROCEDURE: - XR HAND 3 + V RT Comparison:None FINDINGS: No evidence of fracture. The bones are appropriately aligned and the joint spaces are maintained. Soft tissues are within normal limits IMPRESSION: Unremarkable radiographs of the right hand. Location: [facility] at 1405 Reported and signed by: Natan Gomez MD CC: Les Cotton MD; Brennan Boland Technologist: Jama Baker RT(R) Trnscrd Date/Time/By: 02/21/2020 ([id number]) : By: [email or web address] Orig Print D/T: S: 02/21/2020 (4247) PAGE 1 Signed Report BASIC METABOLIC PANEL 2020-02-21 13:57:00 Test Item SODIUM (test code = NA) 138 mmol/L 136-145 N POTASSIUM (test code = K) 3.8 mmol/L 3.5-5.1 N CHLORIDE (test code = CL) 107.0 mmol/L 98-107 N CARBON DIOXIDE (test code = CO2) 25.0 mmol/L 21-32 N ANION GAP (test code = GAP) 9.8 10-20 L GLUCOSE (test code = GLU) 238 mg/dL 74-106 H BLOOD UREA NITROGEN (test code = BUN) 12 mg/dL 7-18 N GLOMERULAR FILTRATION RATE (test code = GFR) > 60 mL/min >=60 Estimated GFR by using Modified MDRD formula.Chronic kidney disease is defined as either kidney damageor GFR <60 mL/min/1.73 m2 for >3 months. CREATININE (test code = CREAT) 1.00 mg/dL 0.7-1.3 N BUN/CREATININE RATIO (test code = BUN/CREA) 12.4 10-20 N CALCIUM (test code = CA) 8.7 mg/dL 8.5-10.1 N CREATINE KINASE (CK)2020-02-21 13:57:00* Test Item Value Reference Range Interpretation Comments CREATINE KINASE (CK) (test code = CK) 60 IUnit/L 26-208 N PROTHROMBIN [id number] 13:50:00* Test Item Value Reference Range Interpretation Comments PROTHROMBIN TIME PATIENT (test code = PTP) 11.5 seconds 9.0-14.0 N INTERNATIONAL NORMAL RATIO (test code = INR) 1.0 0.8-1.2 N The therapeutic range for oral anticoagulant therapy formost indications is an international normalized ratio (INR)of between 2.0 and 3.0. The recommended therapeutic INRrange for various clinical situations is listed below: Clinical Situation INR range Pulmonary e mbolism treatment (2.0-3.0)Venous thrombosis treatmentVenous thrombosis prophylaxis (high risk surgery)Prevention of systemic embolism from: Acute myocardial infarction Valvular heart disease Atrial fibrillation Mechanical prosthetic heart valves (2.5-3.5) IS PATIENT ON ANTICOAGULANTS? YLIST ANTICOAGULANTS PLAVIXIS PATIENT ON ANTICOAGU LANTS? NTHROMBOPLASTIN TIME [id number] 13:50:00* Test Item Value Reference Range Interpretation Comments THROMBOPLASTIN TIME PARTIAL (test code = PTT) 33.3 seconds 23.0-37. 0 N IS PATIENT ON ANTICOAGULANTS? YLIST ANTICOAGULANTS PLAVIXIS PATIENT ON ANTICOAGU LANTS? NBASIC METABOLIC [id number] 13:46:00* Test Item Value Reference Range Interpretation Comments SODIUM (test code = NA) 138 mmol/L 136-145 N POTASSIUM (test code = K) 3.8 mmol/L 3.5-5.1 N CHLORIDE (test code = CL) 107.0 mmol/L 98-107 N CARBON DIOXIDE (test code = CO2) mmol/L 21-32 ANION GAP (test code = GAP) 10-20 GLUCOSE (test code = GLU) mg/dL 74-106 BLOOD UREA NITROGEN (test code = BUN) mg/dL 7-18 GLOMERULAR FILTRATION RATE (test code = GFR) mL/min >=60 CREATININE (test code = CREAT) mg/dL 0.7-1.3 BUN/CREATININE RATIO (test code = BUN/CREA) 10-20 CALCIUM (test code = CA) mg/dL 8.5-10.1 CREATINE KINASE (CK)2020-02-21 13:46:00* Test Item Value Reference Range Interpretation Comments CREATINE KINASE (CK) (test code = CK) IUnit/L 26-208 - CT HEAD/BRAIN W/O [id number] 13:43:00 Name: HIPOLITO JIANG III [facility] : 1970 Age/S: 49 / M [address] [facility] Unit #: [id number] Loc: [place] [address] Phys: Les Cotton MD Acct: [id number] Dis Date: Status: REG ER PHONE #: [phone] Exam Date: 02/21/2020 1316 FAX #: [phone] Reason: Seizure EXAMS: CPT CODE: [id number] CT HEAD/BRAIN W/O CONT 68072 HISTORY: Seizure TECHNIQUE: Noncontrast 2.[address] of the head. Examination acquired within 24 hours of arrival. Automated exposure control for dose reduction. COMPARISON: CT scan of the brain April 24, 2018 FINDINGS: No lacerations or contusions of the scalp or facial soft tissues. Calvarium and skull base are intact. No acute hemorrhage. No intracranial mass, mass effect, or midline shift. No effacement of the sulci or mejia-white matter interface. No cortical atrophy. No signs of white matter small-vessel disease. No hydrocephalus.. No extra-axial fluid collection. Visualized paranasal sinuses are clear. Mastoid air cells and middle ear cavities are clear. Orbital contents are unremarkable. IMPRESSION: Negative CT head. Location: [facility] El ectronically Signed by Natan Gomez MD on 02/21/2020 at 1343 Reported and signed by: Natan Gomez MD CC: Les Cotton MD; Brennan Betancourt Technologist:Ha Hdz RT(R),(MR),(CT) CTDI: DLP: Trnscb Date/Time: 02/21/2020 (1343) t.[email or web address] Orig Print D/T: S: 02/21/2020 (6948) PAGE 1 Signed Report CBC W/O [id number] 13:34:00* Test Item Value Reference Range Interpretation Comments WHITE BLOOD CELL (test code = WBC) 7.6 K/mm3 4.5-12.5 N RED BLOOD CELL (test code = RBC) 4.22 mill/mm3 4.0-5.8 N HEMOGLOBIN (test code = HGB) 13.5 gram/dL 13.0-17.5 N HEMATOCRIT (test code = HCT) 37.4 % 42.0-52.0 L MEAN CELL VOLUME (test code = MCV) 88.6 fL 80-98 N MEAN CELL HGB (test code = MCH) 32.0 picogram 27.0-33.0 N MEAN CELL HGB CONCETRATION (test code = MCHC) 36.1 gram/dL 33.0-36. 0 H RED CELL DISTRIBUTION WIDTH (test code = RDW) 12.7 % 11.6-16. 2 N PLATELET COUNT (test code = PLT) 342 K/mm3 150-450 N MEAN PLATELET VOLUME (test code = MPV) 9.3 fL 6.7-11.0 N PROTHROMBIN [id number] 00:43:00* Test Item Value Reference Range Interpretation Comments PROTHROMBIN TIME PATIENT (test code = PTP) 9.7 seconds 9.0-14.0 N INTERNATIONAL NORMAL RATIO (test code = INR) 1.0 0.8-1.2 N The therapeutic range for oral anticoagulant therapy formost indications is an international normalized ratio (INR)of between 2.0 and 3.0. The recommended therapeutic INRrange for various clinical situations is listed below: Clinical Situation INR range Pulmonary e mbolism treatment (2.0-3.0)Venous thrombosis treatmentVenous thrombosis prophylaxis (high risk surgery)Prevention of systemic embolism from: Acute myocardial infarction Valvular heart disease Atrial fibrillation Mechanical prosthetic heart valves (2.5-3.5) IS PATIENT ON ANTICOAGULANTS? NTHROMBOPLASTIN TIME [id number] 00:43:00* Test Item Value Reference Range Interpretation Comments THROMBOPLASTIN TIME PARTIAL (test code = PTT) 25.6 seconds 25.0-36. 5 N IS PATIENT ON ANTICOAGULANTS? NCBC W/AUTO [id number] 00:41:00* Test Item Value Reference Range Interpretation Comments WHITE BLOOD CELL (test code = WBC) 8.8 K/mm3 4.5-12.5 N RED BLOOD CELL (test code = RBC) 4.48 mill/mm3 4.0-5.8 N HEMOGLOBIN (test code = HGB) 14.0 gram/dL 13.0-17.5 N HEMATOCRIT (test code = HCT) 39.8 % 42.0-52.0 L MEAN CELL VOLUME (test code = MCV) 88.8 fL 80-98 N MEAN CELL HGB (test code = MCH) 31.3 picogram 27.0-33.0 N MEAN CELL HGB CONCETRATION (test code = MCHC) 35.2 gram/dL 33.0-36. 0 N RED CELL DISTRIBUTION WIDTH (test code = RDW) 12.1 % 11.6-16. 2 N RED CELL DISTRIBUTION WIDTH SD (test code = RDW-SD) 39.4 fL 37 .0-51.0 N PLATELET COUNT (test code = PLT) 332 K/mm3 150-450 N MEAN PLATELET VOLUME (test code = MPV) 9.0 fL 6.7-11.0 N NEUTROPHIL % (test code = NT%) 62.4 % 39.0-69.0 N LYMPHOCYTE % (test code = LY%) 25.3 % 25.0-55.0 N MONOCYTE % (test code = MO%) 8.2 % 0.0-10.0 N EOSINOPHIL % (test code = EO%) 3.4 % 0.0-5.0 N BASOPHIL % (test code = BA%) 0.5 % 0.0-1.0 N NEUTROPHIL # (test code = NT#) 5.49 K/mm3 1.8-7.7 N LYMPHOCYTE # (test code = LY#) 2.22 K/mm3 1.0-5.0 N MONOCYTE # (test code = MO#) 0.72 K/mm3 0-0.8 N EOSINOPHIL # (test code = EO#) 0.30 K/mm3 0.0-0.5 N BASOPHIL # (test code = BA#) 0.04 K/mm3 0.0-0.2 N COMPREHENSIVE METABOLIC [id number] 00:40:00* Test Item Value Reference Range Interpretation Comments SODIUM (test code = NA) 141 mmol/L 128-145 N POTASSIUM (test code = K) 4.4 mmol/L 3.5-5.1 N CHLORIDE (test code = CL) 103.0 mmol/L 98-107 N CARBON DIOXIDE (test code = CO2) 31.0 mmol/L 22-29 H ANION GAP (test code = GAP) 11 mmol/L 10-20 N GLUCOSE (test code = GLU) 129 mg/dL 70-110 H BLOOD UREA NITROGEN (test code = BUN) 12 mg/dL 7-22 N CREATININE (test code = CREAT) 0.92 mg/dL 0.55-1.3 N BUN/CREATININE RATIO (test code = BUN/CREA) 13.0 10-20 N TOTAL PROTEIN (test code = PROT) 7.9 gram/dL 6.1-7.8 H ALBUMIN (test code = ALB) 3.5 g/dL 3.3-4.4 N GLOBULIN (test code = GLOB) 4.4 G/DL 1-10 N ALBUMIN/GLOBULIN RATIO (test code = A/G) 0.8 0.75-1.50 N CALCIUM (test code = CA) 9.0 mg/dL 8.0-10.5 N BILIRUBIN TOTAL (test code = BILT) 0.50 mg/dL 0.2-1.2 N SGOT/AST (test code = AST) 16 U/L 10-39 N SGPT/ALT (test code = ALT) 41 U/L 10-69 N ALKALINE PHOSPHATASE TOTAL (test code = ALKP) 68 U/L 50-139 N [id number] 00:40:00* Test Item Value Reference Range Interpretation Comments TROPONIN-I (test code = TROPI) <0.015 ng/mL 0.00-0.056 N B-TYPE NATRIURETIC [id number] 00:38:00* Test Item Value Reference Range Interpretation Comments B-TYPE NATRIURETIC PEPTIDE (test code = BNP) 10.2 pg/mL 0-100 N COMPREHENSIVE METABOLIC [id number] 00:34:00* Test Item Value Reference Range Interpretation Comments SODIUM (test code = NA) 141 mmol/L 128-145 N POTASSIUM (test code = K) 4.4 mmol/L 3.5-5.1 N CHLORIDE (test code = CL) 103.0 mmol/L 98-107 N CARBON DIOXIDE (test code = CO2) 31.0 mmol/L 22-29 H ANION GAP (test code = GAP) 11 mmol/L 10-20 N GLUCOSE (test code = GLU) 129 mg/dL 70-110 H BLOOD UREA NITROGEN (test code = BUN) 12 mg/dL 7-22 N CREATININE (test code = CREAT) 0.92 mg/dL 0.55-1.3 N BUN/CREATININE RATIO (test code = BUN/CREA) 13.0 10-20 N TOTAL PROTEIN (test code = PROT) gram/dL 6.4-8.2 ALBUMIN (test code = ALB) g/dL 3.4-5.0 GLOBULIN (test code = GLOB) G/DL 1-10 ALBUMIN/GLOBULIN RATIO (test code = A/G) 0.75-1.50 CALCIUM (test code = CA) 9.0 mg/dL 8.0-10.5 N BILIRUBIN TOTAL (test code = BILT) mg/dL 0.0-1.0 SGOT/AST (test code = AST) IUnit/L 15-37 SGPT/ALT (test code = ALT) IUnit/L 12-78 ALKALINE PHOSPHATASE TOTAL (test code = ALKP) IUnit/L 45-117 [id number] 00:34:00* Test Item Value Reference Range Interpretation Comments TROPONIN-I (test code = TROPI) ng/mL 0-0.045 - XR CHEST 2 [id number] 22:41:00 FAX: Filemon Lamas MD [phone] [place]: [place] St: REG Name: HIPOLITO CLAY III [facility] FSED : [birth year] Age/S: 48/M [address] Unit #: [id number] Loc: [facility] [address] Phys: Filemon Hartley MD [place], [place] [address] Acct: [id number] Dis Date: Status: REG ER PHONE #: Exam Date: 08/21/2019 1530 FAX #: Reason: infection?? EXAMS: CPT CODE: [id number] XR CHEST 2 V 07611 EXAM: Chest X-ray, 2 views; CLINICAL HISTORY: Infection; FINDINGS: The lungs are clear, no infiltrates, no edema; no effusions; no pneumothorax; n ormal cardiomediastinal silhouette. No change compared with a study from [facility] 2018. IMPRESSION: Normal chest x-ray. Location code: [facility] at 2241 Reported and signed by: Damion Rodney M.D. CC: Filemon Hartley MD Technolo gist: Gómez Wei Trnscrd Date/Time/B y: 08/21/2019 (2240) : By: AshleyGRViraj Orig Print D/T: S: 08/21/2019 (22 44) PAGE 1 Signed Report URINALYSIS [id number] 23:37:00* Test Item Value Reference Range Interpretation Comments UA COLOR (test code = COLU) YELLOW YELLOW UA APPEARANCE (test code = APPU) SLIGHT HAZY CLEAR A UA GLUCOSE DIPSTICK (test code = DGLUU) 1+ mg/dL NEGATIVE UA BILIRUBIN DIPSTICK (test code = BILU) NEGATIVE NEGATIVE UA KETONE DIPSTICK (test code = KETU) NEGATIVE mg/dL NEGATIVE UA SPECIFIC GRAVITY (test code = SGU) >=1.030 1.001-1.035 UA BLOOD DIPSTICK (test code = JULIAN) NEGATIVE NEGATIVE UA PH DIPSTICK (test code = ESTUARDO) 6.0 5.0-8.0 UA PROTEIN DIPSTICK (test code = PROU) 100 (2+) mg/dL Neg-15 UA UROBILINIOGEN DIPSTICK (test code = URO) 0.0-0.2 (NORMAL) mg/dL 0.0-0.2 UA NITRITE DIPSTICK (test code = ARTIE) NEGATIVE NEGATIVE UA LEUKOCYTE ESTERASE DIPSTICK (test code = LEUU) NEGATIVE uL NEGA TIVE UA MICROSCOPIC NEEDED? (test code = UAMICRO) YES UA WBC (test code = WBCU) 0-5 per HPF 0-5 IN SOME URINARY TRACT INFECTIONS THERE MAY NOT BE ENOUGHWBCs IN THE URINE TO TRIGGER AN AUTOMATIC (REFLEX) URINECULTURE. A SEPERATE ORDER FOR URINE CULTURE IS RECOMMENDEDIF THERE IS STRONG SUPPORT FOR A URINARY TRACT INFECTIONCLINICALLY. UA RBC (test code = RBCU) 0-2 per HPF 0-5 UA EPITHELIAL CELLS (test code = EPIU) Few (2-5/hpf) per HPF Few UA BACTERIA (test code = BACU) FEW per HPF NONE UA MUCUS (test code = MUCU) FEW per LPF NONE-FEW Urine Source? Clean CatchDRUGS OF ABUSE SCREEN [id number] 23:37:00* Test Item Value Reference Range Interpretation Comments UR MDMA (test code = MDMAQLU) NEGATIVE NEGATIVE URN COCAINE (test code = COCAURN) NEGATIVE NEGATIVE URN CANNABINOIDS (test code = CANNABURN) NEGATIVE <50 ng/mL URN AMPHETAMINE (test code = AMPHETURN) NEGATIVE NEGATIVE URN BARBITURATE (test code = BARBITURN) NEGATIVE NEGATIVE URN BENZODIAZEPINE (test code = BENZOURN) POSITIVE NEGATIVE A URN OPIATES (test code = OPIATURN) NEGATIVE NEGATIVE URN PHENCYCLIDINE (PCP) (test code = PHENCURN) NEGATIVE NEGATIV E URN METHADONE (test code = METHAURN) NEGATIVE <300 ng/mL Urine Source? Clean CatchURINALYSIS [id number] 23:30:00* Test Item Value Reference Range Interpretation Comments UA COLOR (test code = COLU) YELLOW YELLOW UA APPEARANCE (test code = APPU) SLIGHT HAZY CLEAR A UA GLUCOSE DIPSTICK (test code = DGLUU) 1+ mg/dL NEGATIVE UA BILIRUBIN DIPSTICK (test code = BILU) NEGATIVE NEGATIVE UA KETONE DIPSTICK (test code = KETU) NEGATIVE mg/dL NEGATIVE UA SPECIFIC GRAVITY (test code = SGU) >=1.030 1.001-1.035 UA BLOOD DIPSTICK (test code = JULIAN) NEGATIVE NEGATIVE UA PH DIPSTICK (test code = ESTUARDO) 6.0 5.0-8.0 UA PROTEIN DIPSTICK (test code = PROU) 100 (2+) mg/dL Neg-15 UA UROBILINIOGEN DIPSTICK (test code = URO) 0.0-0.2 (NORMAL) mg/dL 0.0-0.2 UA NITRITE DIPSTICK (test code = ARTIE) NEGATIVE NEGATIVE UA LEUKOCYTE ESTERASE DIPSTICK (test code = LEUU) NEGATIVE uL NEGA TIVE UA MICROSCOPIC NEEDED? (test code = UAMICRO) YES UA WBC (test code = WBCU) 0-5 per HPF 0-5 IN SOME URINARY TRACT INFECTIONS THERE MAY NOT BE ENOUGHWBCs IN THE URINE TO TRIGGER AN AUTOMATIC (REFLEX) URINECULTURE. A SEPERATE ORDER FOR URINE CULTURE IS RECOMMENDEDIF THERE IS STRONG SUPPORT FOR A URINARY TRACT INFECTIONCLINICALLY. UA RBC (test code = RBCU) 0-2 per HPF 0-5 UA EPITHELIAL CELLS (test code = EPIU) Few (2-5/hpf) per HPF Few UA BACTERIA (test code = BACU) FEW per HPF NONE UA MUCUS (test code = MUCU) FEW per LPF NONE-FEW Urine Source? Clean CatchDRUGS OF ABUSE SCREEN [id number] 23:30:00* Test Item Value Reference Range Interpretation Comments UR MDMA (test code = MDMAQLU) NEGATIVE URN COCAINE (test code = COCAURN) <300 ng/mL URN CANNABINOIDS (test code = CANNABURN) <50 ng/mL URN AMPHETAMINE (test code = AMPHETURN) <1000 ng/mL URN BARBITURATE (test code = BARBITURN) <200 ng/mL URN BENZODIAZEPINE (test code = BENZOURN) <200 ng/mL URN OPIATES (test code = OPIATURN) <300 ng/mL URN PHENCYCLIDINE (PCP) (test code = PHENCURN) <25 ng/ mL URN METHADONE (test code = METHAURN) <300 ng/mL Urine Source? Clean CatchURINALYSIS [id number] 23:27:00* Test Item Value Reference Range Interpretation Comments UA COLOR (test code = COLU) YELLOW YELLOW UA APPEARANCE (test code = APPU) SLIGHT HAZY CLEAR A UA GLUCOSE DIPSTICK (test code = DGLUU) 1+ mg/dL NEGATIVE UA BILIRUBIN DIPSTICK (test code = BILU) NEGATIVE NEGATIVE UA KETONE DIPSTICK (test code = KETU) NEGATIVE mg/dL NEGATIVE UA SPECIFIC GRAVITY (test code = SGU) >=1.030 1.001-1.035 UA BLOOD DIPSTICK (test code = JULIAN) NEGATIVE NEGATIVE UA PH DIPSTICK (test code = ESTUARDO) 6.0 5.0-8.0 UA PROTEIN DIPSTICK (test code = PROU) 100 (2+) mg/dL Neg-15 UA UROBILINIOGEN DIPSTICK (test code = URO) 0.0-0.2 (NORMAL) mg/dL 0.0-0.2 UA NITRITE DIPSTICK (test code = ARTIE) NEGATIVE NEGATIVE UA LEUKOCYTE ESTERASE DIPSTICK (test code = LEUU) NEGATIVE uL NEGA TIVE UA MICROSCOPIC NEEDED? (test code = UAMICRO) UA WBC (test code = WBCU) per HPF 0-5 Urine Source? Clean CatchDRUGS OF ABUSE SCREEN [id number] 23:27:00* Test Item Value Reference Range Interpretation Comments UR MDMA (test code = MDMAQLU) NEGATIVE URN COCAINE (test code = COCAURN) <300 ng/mL URN CANNABINOIDS (test code = CANNABURN) <50 ng/mL URN AMPHETAMINE (test code = AMPHETURN) <1000 ng/mL URN BARBITURATE (test code = BARBITURN) <200 ng/mL URN BENZODIAZEPINE (test code = BENZOURN) <200 ng/mL URN OPIATES (test code = OPIATURN) <300 ng/mL URN PHENCYCLIDINE (PCP) (test code = PHENCURN) <25 ng/ mL URN METHADONE (test code = METHAURN) <300 ng/mL Urine Source? Clean CatchB-TYPE NATRIURETIC [id number] 22:57:00* Test Item Value Reference Range Interpretation Comments B-TYPE NATRIURETIC PEPTIDE (test code = BNP) 16.4 pg/mL 0-100 N - XR SHOULDER 2 + V [id number] 22:57:00 [place]: [place] St: REG Name: HIPOLITO CLAY III [facility] FSED : [birth year] Age/S: 47/M [address] Unit #: [id number] Loc: [facility] [address] Phys: Amber Brown MD [place], [place] [address] Acct: [id number] Dis Date: Status: REG ER PHONE #: Exam Date: 10/17/20182245 FAX #: Reason: CP AND L SHOULDER PAIN EXAMS: CPT CODE: [id number] XR SHOULDER 2 + [place] [address] EXAM: Left shoulder, 3 views; INFORMATION: Shoulder pain; FINDINGS: Normal shape and structure of the imaged bones; no evidence of fracture or dislocation; no soft tissue abnormalities. IMPRESSION: No evidence of acute osseous trauma or other pathological changes. No radiopaque foreign body. at 6745 Reported and signed by: Damion Rodney M.D. CC: Los gist: Gómez Wei Trnscrd Date/Time/B y: 10/17/2018 (2256) : By: Galen Orig Print D/T: S: 10/17/2018 (23 ) PAGE 1 Signed Report - XR CHEST 1 [id number] 22:56:00 [place]: [place] St: REG Name: HIPOLITO CLAY III [facility] FSED : [birth year] 75 Age/S: 47/M [address] Unit #: [id number] Loc: [facility] [address] Phys: Amber Brown MD [place], [place] [address] Acct: [id number] Dis Date: Status: REG ER PHONE #: Exam Date: 10/17/2018 4363 FAX #: Reason: CHEST PAIN EXAMS: CPT CODE: [id number] XR CHEST 1 V 10857 EXAM: Chest X-ray, 1 view; CLINICAL HISTORY: Chest pain; FINDINGS: The lungs are clear, no infiltrates, no edema; no effusions; no pneumothorax; n ormal cardiomediastinal silhouette. IMPRESSION: Normal chest x-ray. at 0120 Reported and signed by: Damion Rodney M.D. CC: Technologist: Gómez Wei Trnscrd Date/Time/By: 0 10/17/2018 (9317) : By: JacobW Orig Print D/T: S: 10/17/2018 (8355) PAGE 1 Signed Report [id number] 22:55:00* Test Item Value Reference Range Interpretation Comments D-DIMER (test code = DDIMER) 231 ng/ml < 600 BASIC METABOLIC [id number] 22:53:00* Test Item Value Reference Range Interpretation Comments SODIUM (test code = NA) 139 mmol/L 128-145 N POTASSIUM (test code = K) 3.8 mmol/L 3.5-5.1 N CHLORIDE (test code = CL) 103.0 mmol/L 98-107 N CARBON DIOXIDE (test code = CO2) 26.7 mmol/L 22-29 N ANION GAP (test code = GAP) 13 mmol/L 10-20 N GLUCOSE (test code = GLU) 245 mg/dL 70-110 H BLOOD UREA NITROGEN (test code = BUN) 14 mg/dL 7-22 N GLOMERULAR FILTRATION RATE (test code = GFR) > 60 mL/min >=60 Estimated GFR by using Modified MDRD formula.Chronic kidney disease is defined as either kidney damageor GFR <60 mL/min/1.73 m2 for >3 months. CREATININE (test code = CREAT) 0.90 mg/dL 0.55-1.3 N BUN/CREATININE RATIO (test code = BUN/CREA) 15.6 10-20 N CALCIUM (test code = CA) 9.0 mg/dL 8.0-10.5 N HEPATIC FUNCTION [id number] 22:53:00* Test Item Value Reference Range Interpretation Comments TOTAL PROTEIN (test code = PROT) 7.9 gram/dL 6.1-7.8 H ALBUMIN (test code = ALB) 3.5 g/dL 3.3-4.4 N GLOBULIN (test code = GLOB) 4.4 G/DL 1-10 N ALBUMIN/GLOBULIN RATIO (test code = A/G) 0.8 0.75-1.50 N BILIRUBIN TOTAL (test code = BILT) 0.50 mg/dL 0.2-1.2 N BILIRUBIN DIRECT (test code = BILD) 0.10 mg/dL 0.0-0.30 N SGOT/AST (test code = AST) 23 U/L 10-39 N SGPT/ALT (test code = ALT) 44 U/L 10-69 N ALKALINE PHOSPHATASE TOTAL (test code = ALKP) 79 U/L 50-139 N [id number] 22:53:00* Test Item Value Reference Range Interpretation Comments LIPASE (test code = LIP) 162 Unit/L 144-286 N [id number] 22:53:00* Test Item Value Reference Range Interpretation Comments TROPONIN-I (test code = TROPI) <0.015 ng/mL 0.00-0.056 N [id number] 22:50:00* Test Item Value Reference Range Interpretation Comments GLYCOSYLATED HEMOGLOBIN (HA1C) (test code = GLYHGB) 8.1 % 4. 5-6.2 H ESTIMATED AVERAGE GLUCOSE (test code = EAG) 186 MG/DL BASIC METABOLIC [id number] 22:49:00* Test Item Value Reference Range Interpretation Comments SODIUM (test code = NA) 139 mmol/L 128-145 N POTASSIUM (test code = K) 3.8 mmol/L 3.5-5.1 N CHLORIDE (test code = CL) 103.0 mmol/L 98-107 N CARBON DIOXIDE (test code = CO2) 26.7 mmol/L 22-29 N ANION GAP (test code = GAP) 13 mmol/L 10-20 N GLUCOSE (test code = GLU) 245 mg/dL 70-110 H BLOOD UREA NITROGEN (test code = BUN) 14 mg/dL 7-22 N GLOMERULAR FILTRATION RATE (test code = GFR) > 60 mL/min >=60 Estimated GFR by using Modified MDRD formula.Chronic kidney disease is defined as either kidney damageor GFR <60 mL/min/1.73 m2 for >3 months. CREATININE (test code = CREAT) 0.90 mg/dL 0.55-1.3 N BUN/CREATININE RATIO (test code = BUN/CREA) 15.6 10-20 N CALCIUM (test code = CA) 9.0 mg/dL 8.0-10.5 N HEPATIC FUNCTION [id number] 22:49:00* Test Item Value Reference Range Interpretation Comments TOTAL PROTEIN (test code = PROT) gram/dL 6.4-8.2 ALBUMIN (test code = ALB) g/dL 3.4-5.0 GLOBULIN (test code = GLOB) G/DL 1-10 ALBUMIN/GLOBULIN RATIO (test code = A/G) 0.75-1.50 BILIRUBIN TOTAL (test code = BILT) mg/dL 0.0-1.0 BILIRUBIN DIRECT (test code = BILD) mg/dL 0.0-0.20 SGOT/AST (test code = AST) IUnit/L 15-37 SGPT/ALT (test code = ALT) IUnit/L 12-78 ALKALINE PHOSPHATASE TOTAL (test code = ALKP) IUnit/L 45-117 [id number] 22:49:00* Test Item Value Reference Range Interpretation Comments LIPASE (test code = LIP) U/L 73.0-393.0 [id number] 22:49:00* Test Item Value Reference Range Interpretation Comments TROPONIN-I (test code = TROPI) ng/mL 0-0.045 CBC W/O [id number] 22:34:00* Test Item Value Reference Range Interpretation Comments WHITE BLOOD CELL (test code = WBC) 10.0 K/mm3 4.5-12.5 N RED BLOOD CELL (test code = RBC) 4.61 mill/mm3 4.0-5.8 N HEMOGLOBIN (test code = HGB) 14.6 gram/dL 13.0-17.5 N HEMATOCRIT (test code = HCT) 40.2 % 42.0-52.0 L MEAN CELL VOLUME (test code = MCV) 87.2 fL 80-98 N MEAN CELL HGB (test code = MCH) 31.7 picogram 27.0-33.0 N MEAN CELL HGB CONCETRATION (test code = MCHC) 36.3 gram/dL 33.0-36. 0 H RED CELL DISTRIBUTION WIDTH (test code = RDW) 12.5 % 11.6-16. 2 N RED CELL DISTRIBUTION WIDTH SD (test code = RDW-SD) 39.8 fL 37 .0-51.0 N PLATELET COUNT (test code = PLT) 335 K/mm3 150-450 N MEAN PLATELET VOLUME (test code = MPV) 9.1 fL 6.7-11.0 N DMYHBO4426-13-21 21:11:00* Test Item Value Reference Range Interpretation Comments VLDL (test code = VLDL) 49 1 [facility] QnyyvozLLVIXS1610-97-71 21:11:12664Maquwprf MkgnktmBQXPRN2417-47-33 21:11:60724Rvsnsnek RitpyulIYINYR6763-21-94 21:11:00* Test Item Value Reference Range Interpretation Comments CHD Risk (test code = CHD Risk) 10.33 1 4.00-7.30 [facility] GgrirjqGHRYWU8248-83-23 21:11:0036[facility] DcbvmfkBWADHS3647-55-45 21:11:35935Ujiqragv HermannSPECIAL XJRAGKDOM5625-02-91 21:11:008.9[facility] HermannCARDIAC AEZSIUN5129-94-97 17:00:0028[facility] HermannCARDIAC ENZYMES 2018-08-22 17:00:00<0.02[facility] JdrrljuMOLRYPXJUZOF9217-83-30 17:00:0011.3 [facility] IjbieewGVRXUFCIRPFN8034-71-00 17:00:21640Oqjdlhse HermannELECTROLYTES 2018-08-22 17:00:44393Veypptfs MshvgahUXZQOZPNIKWS8743-85-77 17:00:0099[facility] FynjhucHIBOXAZWUPCV7695-39-06 17:00:004.3[facility] CobgcczBVVUIRPFQQRN0384-39-43 17:00:009.5[facility] BnegeonFFXNCTTZDAGM2072-55-48 17:00:0028[facility] [place] DSSXXVBDCJPE7214-95-69 17:00:000.86[facility] GtgdbdeISACJTJVYGVQ2197-05-43 17:00:0015[facility] GhqkvuuXSXEMBXPLQFJ1787-68-48 17:00:61565Adqfdbok [place] XRHUFPYBMR8345-03-99 17:00:006.5[facility] YybnhxdMEEOUABEBI4037-40-52 17:00:001.5 [facility] LacobqkLIBYQONDHX4710-75-25 17:00:0065.0[facility] HermannHEMATOLOGY 2018-08-22 17:00:0026.4[facility] YqdjjyfGVOZQIXIHJ1182-72-63 17:00:000.6[facility] TvmnkgiTFESRYEYMZ1233-98-41 17:00:000.1[facility] QlhjcskCRLFHYCWUW8413-60-84 17:00:000.1[facility] NfsnzzhLIPKBOLZNX4173-78-56 17:00:002.3[facility] BMQKNPJVQF2274-07-14 17:00:000.6[facility] LuekvsxUFTKMZWOHO5039-33-69 17:00:005.5 [facility] ZoghsmwUHBQWWSVSZ9884-31-71 17:00:0089.4[facility] HermannHEMATOLOGY 2018-08-22 17:00:00* Test Item Value Reference Range Interpretation Comments MCH (test code = MCH) 31.1 pg 27.0-31.0 [facility] RfirhxfVCFDGKYZEC3187-40-47 17:00:0015.4[facility] HermannHEMATOLOGY 2018-08-22 17:00:0044.3[facility] RmsmaysYJZOEMMNTL2021-34-88 17:00:007.4[facility] QfjinlsKMCWXEDNFS4491-22-28 17:00:44980Fyukqgmt EvthlrtKLVVORYWBA7259-84-12 17:00:0034.7[facility] CjhilmyJBEWYIRDCK6633-45-69 17:00:0011.8[facility] UABLGHRHUO8953-44-01 17:00:008.6[facility] IdzzaktCWJYGCZPMQ2787-34-40 17:00:00 4.95[facility] CvxsjowXBKFNMINSY4350-10-26 17:00:00* Test Item Value Reference Range Interpretation Comments INR (test code = INR) 0.94 1 0.85-1.17 [facility] FqvxrehOCANWPCJPN3373-31-98 17:00:00* Test Item Value Reference Range Interpretation Comments PT (test code = PT) 12.4 s 12.0-14.7 [facility] BoddhqlOUDNPFOUXV9475-79-36 17:00:00* Test Item Value Reference Range Interpretation Comments PTT (test code = PTT) 33.6 s 22.9-35.8 [facility]annCHEM CWAPL3423-49-56 05:06:003.6[facility]annCHEM PANEL 2017-03-01 05:06:001.0[facility]annCHEM OHMMQ5310-57-09 05:06:0013.0[facility]annCHEM HPJAF0279-03-59 05:06:0011[facility] HermannCHEM RFZTF7603-84-69 05:06:008.9[facility]annCHEM ORUYO5257-52-45 05:06:48336Rbwlwzqv HermannCHEM TBSQW8472-63-10 05:06:72203Oimgrnox HermannCHEM XMXEX2217-98-35 05:06:0028 [facility] CHZPN9836-13-59 05:06:0094[facility]annCHEM PANEL 2017-03-01 05:06:000.97[facility]annCHEM JQPMH9449-81-67 05:06:0011[facility]annCHEM PPSHI0027-73-60 05:06:003.6[facility]annCHEM RKZOZ8379-36-13 05:06:86680Cxxzeble HermannCHEM SFTGG2821-22-84 05:06:0056[facility]annCHE[facility] WPNTD2630-86-22 05:06:0049[facility]annCHE[facility] ACRVB5435-93-66 05:06:004.0 [facility]annCHE[facility] PDCJR3111-81-19 05:06:007.2[facility]annCHEM PANEL 2017-03-01 05:06:0022[facility]annCHEM MJXHL4957-95-62 05:06:000.4[facility]annCHEM MWOPW3898-76-00 05:06:002.0[facility]annCHEM YAIHB1722-45-53 05:06:11447Joekzuvq GdlyarlUHZBAGPKEQ7283-14-15 05:06:007.7[facility] IJKYLXAHBL6646-44-63 05:06:0034.6[facility] CzthfmhGRMFFTWXUI9409-04-02 05:06:00 12.3[facility] ZbpevahFRZJBAUQRF6051-92-41 05:06:84802Cgbavdtf HermannHEMATOLOGY 2017-03-01 05:06:00* Test Item Value Reference Range Interpretation Comments MCH (test code = MCH) 30.9 pg 27.0-31.0 [facility] OqirpjlUZDBXOICVT7182-18-34 05:06:0013.7[facility]annHEMATOLOGY 2017-03-01 05:06:0039.7[facility] ZiqfwqrTSGSOGXYGU1315-55-47 05:06:0089.3[facility] ShhjgkbNKWNEITUWL8601-75-29 05:06:004.44[facility] EeyacfqXAUDPJFMVY3279-02-76 05:06:007.5[facility] ZerlbceXLCCMVUMGY5960-99-83 05:06:000.2[facility] [place] JHNQLIMAWD8114-67-51 05:06:0034.5[facility] XqsojhaGKJKZSQTEC0225-19-54 05:06:00 7.1[facility] BcztrgpIIRYJJRVOH4929-48-66 05:06:0055.7[facility]annHEMATOLOGY 2017-03-01 05:06:000.5[facility] JfzzrryJOMMWHHEMX7589-12-67 05:06:004.2[facility] RnwzclvVUIEFVNAIT3392-38-25 05:06:002.6[facility] UhgbtrsNACHMQZTDJ6724-08-19 05:06:002.1[facility] MitowyvCXQYAKIAAV1097-20-50 05:06:000.6[facility] AND FVJTT4240-63-85 05:06:00Performed (03/01/17 12:06 AM)[facility] YNOTN8099-05-10 05:06:00None Seen (03/01/17 12:06 AM)[facility] WFREY7301-58-64 05:06:00Negative (03/01/17 12:06 AM)[facility] GLLGT5635-82-25 05:06:000.2[facility] PNFFU0853-39-45 05:06:00 Negative (03/01/17 12:06 AM)[facility] KYWNH3703-12-35 05:06:00 Negative *NA*(03/01/17 12:06 AM)[facility] VOYQK6219-74-00 05:06:00Negative (03/01/17 12:06 AM)[facility] ROGPS4012-96-62 05:06:00Negative *NA*(03/01/17 12:06 AM)[facility] VOMKJ9171-54-35 05:06:00* Test Item Value Reference Range Interpretation Comments UA Spec Grav (test code = UA Spec Grav) 1.025 1 [facility] NXNBA9852-32-29 05:06:00Clear (03/01/17 12:06 AM) [facility] TMMMO3814-09-85 05:06:00* Test Item Value Reference Range Interpretation Comments UA pH (test code = UA pH) 6.0 1 5.0-8.0 [facility] GNEVK2100-40-52 05:06:00Yellow *NA*(03/01/17 12:06 AM) [facility]
== END 2020-06-08 22:56 | disposition home or self-care (01) ==
LOC: ER 17:54
DX: R06.00 Dyspnea, unspecified (principal); Z11.59 Encounter for screening for other viral diseases; E11.65 Type 2 diabetes mellitus with hyperglycemia; I10 Essential (primary) hypertension; J44.9 Chronic obstructive pulmonary disease, unspecified; G40.909 Epilepsy, unspecified, not intractable, without status epilepticus; E78.5 Hyperlipidemia, unspecified; F31.9 Bipolar disorder, unspecified; E66.9 Obesity, unspecified
CPT/HCPCS: 36415; 71045; 71250; 80053; 82550; 82553; 83880; 84484; 85025; 93005; 99284; U0002